=== PATIENT | male | born 1950 | race Native Hawaiian/Other Pacific Islander ===

== ENCOUNTER 2022-04-04 08:20 | Outpatient (CLI) | payer OTHER | END 2022-04-04 20:24 | disposition home or self-care (01) | LOC: NM 08:20 | PROVIDERS: ATTEND Internal Medicine | DX: R93.2 Abnormal findings on diagnostic imaging of liver and biliary tract (principal); R10.11 Right upper quadrant pain; R11.0 Nausea | CPT/HCPCS: A9537 ==